=== PATIENT | male | born 1955 | race Caucasian/White ===

== ENCOUNTER 2024-02-29 07:44 | Inpatient (IN) | payer OTHER, MEDICARE ==
[2024-02-29] VITALS (19 sets, daily range): BP systolic 61–196; BP diastolic 42–78; PULSE 50–93; RESP 18–24; TEMP 37.2252–37.28076; O2SAT 87–100
[~2024-02-29] VITALS: Ht 175.3 cm; Wt 92.1 kg
[2024-02-29] MEDS ORDERED: ACETAMINOPHEN 650MG SUPP PR PRN (08:15)
[2024-02-29] MEDS ORDERED: ACETAMINOPHEN 650MG/20.3ML UDC NG PRN (08:15)
[2024-02-29 08:29] LABS: HEMATOCRIT. 43.9 % (42.0-52.0); HEMOGLOBIN. 13.3 g/dL (14.0-18.0); MEAN CORPUSCULAR HGB CONC 30.2 g/dL (31.0-37.0); MEAN CORPUSCULAR VOLUME 106.1 fL (80.0-94.0); MEAN PLATELET VOLUME 8.7 fl (7.4-10.4); PLATELET 90 x1000/uL (130-400); RED BLOOD CELL COUNT 4.14 mill/uL (4.7-6.1); RED CELL DISTRIBUTION WIDTH 15.8 % (11.6-14.6); WHITE BLOOD COUNT 10.2 x1000/uL (4.5-11.0)
[2024-02-29] MEDS ORDERED: FENTANYL 2500MCG/250ML PMX 250 ML IV ONE (08:30)
[2024-02-29] MEDS ORDERED: MIDAZOLAM HCL 100 MG in DEXT 5% WATER 80 ML IV ONE (08:30)
[2024-02-29] MEDS ORDERED: FENTANYL CITRATE/PF 50MCG/ML 2ML VIAL IV ONE (08:30)
[2024-02-29 08:33] LABS: CHLORIDE 101 mEq/L (98-107); DIFFERENTIAL COMMENT 1; SODIUM 137 mEq/L (136-145)
[2024-02-29 08:34] LABS: CARBON DIOXIDE 19 mEq/L (21-32)
[2024-02-29 08:35] LABS: CALCIUM 7.8 mg/dL (8.7-10.4)
[2024-02-29 08:39] LABS: CREATININE 1.5 mg/dL (0.6-1.3)
[2024-02-29 08:40] LABS: UREA NITROGEN BLOOD 14 mg/dL (9-23)
[2024-02-29] MEDS ORDERED: DOPAMINE 800MG PREMIX (DOUBLE) 250 ML IV ONE (08:45)
[2024-02-29 08:46] LABS: GLUCOSE 429 mg/dL (70-105); PHOSPHORUS 8.1 mg/dL (2.5-4.9); TROPONIN I HIGH SENSITIVITY 226 ng/L (3.0-53)
[2024-02-29] MEDS: DOPAMINE 800MG PREMIX (DOUBLE) 250 ML IV ONE (08:58)
[2024-02-29] MEDS: MIDAZOLAM 100MG/100ML PMX 100 ML IV PRN (09:02)
[2024-02-29] MEDS: FENTANYL 2500MCG/250ML PMX 250 ML IV PRN (09:05)
[2024-02-29] MEDS ORDERED: MIDAZOLAM 100MG/100ML PMX 100 ML IV PRN (09:30)
[2024-02-29] MEDS ORDERED: MAGNESIUM/ALUMINUM HYDROXIDE/SIMETHICONE 30ML UDC PO PRN (09:30)
[2024-02-29] MEDS ORDERED: GUAIFENESIN 200MG/10ML SUGAR FREE UDC PO PRN (09:30)
[2024-02-29] MEDS ORDERED: DOCUSATE SODIUM 100MG CAPSULE PO PRN (09:30)
[2024-02-29] MEDS ORDERED: ONDANSETRON HCL 4MG/2ML INJ IV PRN (09:30)
[2024-02-29] MEDS ORDERED: ACETAMINOPHEN 650MG/20.3ML UDC GT PRN (09:30)
[2024-02-29] MEDS: FENTANYL CITRATE/PF 50MCG/ML 2ML VIAL IV NR (09:38)
[2024-02-29] MEDS: PANTOPRAZOLE SODIUM 40 MG/VIAL IV SCH (09:45)
[2024-02-29 10:08] LABS: TRIGLYCERIDE 149 mg/dL (0-150)
[2024-02-29 10:09] LABS: LDL CHOLESTEROL 67 mg/dL (5-100)
[2024-02-29 10:10] LABS: ALANINE AMINOTRANSFERASE 22 IU/L (10-49); ALBUMIN 3.4 g/dL (3.2-4.8); ASPARTATE AMINOTRANSFERASE 39 IU/L (<34); BILIRUBIN DIRECT 0.2 mg/dL (<=3.0); BILIRUBIN TOTAL 0.7 mg/dL (0.1-1.0); CHOLESTEROL 146 mg/dL (<200); HDL CHOLESTEROL 55 mg/dL (>55); PROTEIN TOTAL 5.6 g/dL (6.0-8.3)
[2024-02-29 10:12] LABS: T4 FREE 0.81 ng/dL (0.89-1.76); THYROID STIMULATING HORMONE 3.31 uIU/mL (0.55-4.78)
[2024-02-29 10:13] LABS: BG BASE EXCESS -16.6 mmol/L (-2.0-3.0); BG CARBOXYHEMOGLOBIN 1.1 % (0.5-1.5); BG DEOXYHEMOGLOBIN 10.1 % (0.0-5.0); BG FRACTION INSPIRED OXYGEN 100; BG HCO3 ACT 15.6 mmol/L (21.0-28.0); BG OXYGEN SATURATION 89.8 % (94.0-98.0); BG OXYHEMOGLOBIN 88.8 % (94.0-98.0); BG PCO2 66.5 mmHg (35.0-48.0); BG PH 6.988 (7.350-7.450); BG PO2 83.9 mmHg (83.0-108.0); BG SAMPLE SITE RIGHT RADIAL; BG VENT MODE VENT - AC
[2024-02-29 10:28] LABS: D-DIMER 3.95 mg/L FEU (<0.50); PARTIAL THROMBOPLASTIN TIME 39.2 sec (23.4-31.0); PROTHROMBIN TIME 11.5 sec (9.6-11.0)
[2024-02-29] MEDS: NOREPINEPHRINE 8MG/250ML PMX 250 ML IV ONE (10:53)
[2024-02-29] MEDS: KCL 20MEQ/100ML PREMIX 100 ML IV ONE (10:59)
[2024-02-29] MEDS: IPRATROPIUM/ALBUTEROL 0.5-3(2.5)MG/3ML NEB HHN SCH (11:10)
[2024-02-29] MEDS ORDERED: DEXTROSE 50% WATER 50ML SYRINGE IV PRN (11:30)
[2024-02-29 11:35] LABS: FOLIC ACID (FOLATE) SERUM > 20.00 ng/mL (>5.38)
[2024-02-29 11:36] LABS: VITAMIN B12 SERUM 608 pg/mL (211-911)
[2024-02-29] MEDS ORDERED: DEXT 5%/LACTATED RINGERS 1,000 ML IV SCH (13:00)
[2024-02-29] MEDS: BLOOD SUGAR DIAGNOSTIC STRIP TEST SCH (13:18)
[2024-02-29] MEDS: NOREPINEPHRINE 32 MG in DEXT 5% WATER 218 ML IV PRN (13:18)
[2024-02-29] MEDS: LACTATED RINGERS 1,000 ML IV SCH (13:18)
[2024-02-29] MEDS: INSULIN LISPRO 100 UNITS/ML SUBCUT SCH (14:14)
[2024-02-29 14:57] LABS: ANISOCYTOSIS 1+; PLATELET ESTIMATE DECREASED
[2024-02-29] MEDS: IOHEXOL-350 100 ML BOTTLE ONE (15:52)
[2024-02-29 16:23] LABS: BG BASE EXCESS -6.4 mmol/L (-2.0-3.0); BG CARBOXYHEMOGLOBIN 0.2 % (0.5-1.5); BG DEOXYHEMOGLOBIN 0.4 % (0.0-5.0); BG FRACTION INSPIRED OXYGEN 100; BG HCO3 ACT 19.6 mmol/L (21.0-28.0); BG OXYGEN SATURATION 99.6 % (94.0-98.0); BG OXYHEMOGLOBIN 99.4 % (94.0-98.0); BG PCO2 40.9 mmHg (35.0-48.0); BG PH 7.299 (7.350-7.450); BG PO2 223.7 mmHg (83.0-108.0); BG SAMPLE SITE RIGHT RADIAL; BG TOTAL HEMOGLOBIN 15.4 g/dL (13.5-17.5); BG VENT MODE VENT - AC
[2024-02-29] MEDS ORDERED: CEFEPIME 1GM IN DEXT 5% 50ML IV SCH (16:30)
[2024-02-29 19:00] LABS: CLARITY URINE CLEAR (CLEAR); COLOR URINE YELLOW (YELLOW); GLUCOSE URINE 1+ (NEGATIVE); KETONES URINE NEGATIVE (NEGATIVE); LEUKOCYTE ESTERASE URINE NEGATIVE (NEGATIVE); NITRITE URINE NEGATIVE (NEGATIVE); OCCULT BLOOD URINE 3+ (NEGATIVE); PROTEIN URINE 2+ (NEGATIVE); SPECIFIC GRAVITY URINE 1.026 (1.005-1.030); UROBILINOGEN URINE 0.2 E.U./dL (0.2-1.0)
[2024-02-29 19:08] LABS: *AMPHETAMINES SCREEN URINE NEGATIVE (NEGATIVE); *BARBITURATES SCREEN URINE NEGATIVE (NEGATIVE); *BENZODIAZEPINES SCREEN URINE PRESUMPTIVE POSITIVE (NEGATIVE); *COCAINE SCREEN URINE NEGATIVE (NEGATIVE); METHADONE URINE SCREEN NEGATIVE (NEGATIVE); OPIATES URINE SCREEN NEGATIVE (NEGATIVE)
[2024-02-29 19:09] LABS: CANNABINOID URINE SCREEN NEGATIVE (NEGATIVE); ECSTASY MDMA SCREEN URINE NEGATIVE (NEGATIVE); PHENCYCLIDINE URINE SCREEN NEGATIVE (NEGATIVE)
[2024-02-29] MEDS: CEFEPIME 2GM/100ML 100 ML IV SCH (19:40)
[2024-02-29 19:48] LABS: CREATINE KINASE MB FRACTION > 300.0 ng/mL (0.5-3.6)
[2024-02-29 19:58] LABS: RBC URINE 15-25 /hpf (0-2); SQUAMOUS EPITHELIAL CELL URINE 1+ /lpf (RARE/1+); WBC URINE 0-2 /hpf (0-2)
[2024-02-29 19:59] LABS: BACTERIA URINE TRACE
[2024-02-29 21:22] LABS: CREATINE KINASE 3578 IU/L (46-171)
[2024-02-29 21:44] LABS: TROPONIN I HIGH SENSITIVITY 79846 ng/L (3.0-53)
[2024-02-29] MEDS ORDERED: IOHEXOL-350 100 ML BOTTLE ONE (22:59)
[2024-03-01] VITALS (112 sets, daily range): BP systolic 87–202; BP diastolic 40–121; PULSE 57–118; RESP 17–32; TEMP 36.50292–37.7808; O2SAT 93–100
[2024-03-01] MEDS ORDERED: DEXTROSE 50% WATER 50ML SYRINGE IV PRN (00:15)
[2024-03-01 02:13] LABS: CHLORIDE 108 mEq/L (98-107); POTASSIUM 4.2 mEq/L (3.5-5.1); SODIUM 139 mEq/L (136-145)
[2024-03-01 02:14] LABS: CALCIUM 8.5 mg/dL (8.7-10.4); CARBON DIOXIDE 20 mEq/L (21-32)
[2024-03-01 02:19] LABS: UREA NITROGEN BLOOD 26 mg/dL (9-23)
[2024-03-01 02:20] LABS: AMMONIA < 17 uMol/L (<32)
[2024-03-01 02:21] LABS: ALANINE AMINOTRANSFERASE 117 IU/L (10-49); ALBUMIN 3.4 g/dL (3.2-4.8); ASPARTATE AMINOTRANSFERASE 450 IU/L (<34); BILIRUBIN DIRECT 0.6 mg/dL (<=3.0); PHOSPHORUS 3.6 mg/dL (2.5-4.9)
[2024-03-01 02:22] LABS: BILIRUBIN TOTAL 1.6 mg/dL (0.1-1.0); PROTEIN TOTAL 5.7 g/dL (6.0-8.3)
[2024-03-01 02:47] LABS: CREATININE 2.4 mg/dL (0.6-1.3); GLUCOSE 174 mg/dL (70-105)
[2024-03-01] MEDS: ACETYLCYSTEINE 200MG/ML 20% VIAL 4ML INH SCH (04:37)
[2024-03-01 05:12] LABS: BG BASE EXCESS -2.9 mmol/L (-2.0-3.0); BG DEOXYHEMOGLOBIN 5.3 % (0.0-5.0); BG FRACTION INSPIRED OXYGEN 30; BG HCO3 ACT 21.9 mmol/L (21.0-28.0); BG OXYGEN SATURATION 94.6 % (94.0-98.0); BG OXYHEMOGLOBIN 93.7 % (94.0-98.0); BG PCO2 38.6 mmHg (35.0-48.0); BG PH 7.372 (7.350-7.450); BG PO2 74.3 mmHg (83.0-108.0); BG SAMPLE SITE RIGHT RADIAL; BG VENT MODE VENT - AC
[2024-03-01 06:54] LABS: HEMATOCRIT. 42.7 % (42.0-52.0); MEAN CORPUSCULAR HEMOGLOBIN 31.9 pg (28.0-32.0); MEAN CORPUSCULAR HGB CONC 32.7 g/dL (31.0-37.0); MEAN CORPUSCULAR VOLUME 97.4 fL (80.0-94.0); MEAN PLATELET VOLUME 8.5 fl (7.4-10.4); PLATELET 185 x1000/uL (130-400); RED BLOOD CELL COUNT 4.38 mill/uL (4.7-6.1); WHITE BLOOD COUNT 17.7 x1000/uL (4.5-11.0)
[2024-03-01] MEDS: MAGNESIUM 2 G PREMIX 50 ML IV NR (06:58)
[2024-03-01] MEDS ORDERED: DOPAMINE 800MG PREMIX (DOUBLE) 250 ML IV PRN (07:00)
[2024-03-01] MEDS: DOPAMINE 800MG PREMIX (DOUBLE) 250 ML IV PRN (07:02)
[2024-03-01 07:17] LABS: CARBON DIOXIDE 21 mEq/L (21-32); CHLORIDE 107 mEq/L (98-107); SODIUM 139 mEq/L (136-145)
[2024-03-01 07:18] LABS: CALCIUM 8.7 mg/dL (8.7-10.4)
[2024-03-01 07:23] LABS: CREATININE 2.4 mg/dL (0.6-1.3); GLUCOSE 150 mg/dL (70-105); UREA NITROGEN BLOOD 20 mg/dL (9-23)
[2024-03-01 07:25] LABS: PHOSPHORUS 3.4 mg/dL (2.5-4.9)
[2024-03-01] MEDS: BLOOD SUGAR DIAGNOSTIC STRIP TEST SCH (07:50)
[2024-03-01 08:41] LABS: BG BASE EXCESS -2.8 mmol/L (-2.0-3.0); BG CARBOXYHEMOGLOBIN 1.1 % (0.5-1.5); BG FRACTION INSPIRED OXYGEN 30; BG HCO3 ACT 21.9 mmol/L (21.0-28.0); BG METHEMOGLOBIN 0.3 % (0.5-1.5); BG OXYGEN SATURATION 91.9 % (94.0-98.0); BG OXYHEMOGLOBIN 90.6 % (94.0-98.0); BG PCO2 37.7 mmHg (35.0-48.0); BG PH 7.381 (7.350-7.450); BG PO2 61.8 mmHg (83.0-108.0); BG SAMPLE SITE RIGHT RADIAL; BG TOTAL HEMOGLOBIN 14.1 g/dL (13.5-17.5); BG VENT MODE VENT - AC
[2024-03-01 08:47] LABS: CREATINE KINASE 5647 IU/L (46-171)
[2024-03-01 08:53] LABS: CREATINE KINASE MB FRACTION 331.1 ng/mL (0.5-3.6); TROPONIN I HIGH SENSITIVITY 41703 ng/L (3.0-53)
[2024-03-01 09:15] LABS: DIFFERENTIAL COMMENT 1
[2024-03-01] MEDS ORDERED: LIDOCAINE HCL 1% 10 MG/ML 10ML VIAL ONE (13:21)
[2024-03-01] MEDS: ENOXAPARIN 80MG/0.8ML SYR SUBCUT SCH (14:54)
[2024-03-01] MEDS: DEXT 5%/LACTATED RINGERS 1,000 ML IV SCH (14:54)
[2024-03-01] MEDS: INSULIN LISPRO 100 UNITS/ML SUBCUT SCH (20:59)
[2024-03-02] VITALS (102 sets, daily range): BP systolic 113–187; BP diastolic 48–124; PULSE 71–106; RESP 13–29; TEMP 36.72516–37.66968; O2SAT 81–100
[2024-03-02 07:17] LABS: BASOPHILS % 0.1 % (0.0-2.0); HEMOGLOBIN. 10.7 g/dL (14.0-18.0); LYMPHOCYTES % 9.8 % (20.0-50.0); MEAN CORPUSCULAR HEMOGLOBIN 31.8 pg (28.0-32.0); MEAN CORPUSCULAR HGB CONC 33.3 g/dL (31.0-37.0); MEAN CORPUSCULAR VOLUME 95.5 fL (80.0-94.0); MEAN PLATELET VOLUME 9.2 fl (7.4-10.4); MONOCYTES % 8.2 % (2.0-8.0); NEUTROPHILS % 81.9 % (40.0-76.0); PLATELET 149 x1000/uL (130-400); RED BLOOD CELL COUNT 3.35 mill/uL (4.7-6.1); RED CELL DISTRIBUTION WIDTH 14.7 % (11.6-14.6); WHITE BLOOD COUNT 13.1 x1000/uL (4.5-11.0)
[2024-03-02] MEDS: MIDAZOLAM 100MG/100ML PMX 100 ML IV PRN (07:23)
[2024-03-02 07:24] LABS: CHLORIDE 111 mEq/L (98-107); POTASSIUM 4.4 mEq/L (3.5-5.1); SODIUM 142 mEq/L (136-145)
[2024-03-02 07:25] LABS: CALCIUM 8.2 mg/dL (8.7-10.4); CARBON DIOXIDE 24 mEq/L (21-32)
[2024-03-02] MEDS: CEFEPIME 2GM/100ML 100 ML IV SCH ×2 (07:25→17:39)
[2024-03-02 07:30] LABS: CREATININE 2.4 mg/dL (0.6-1.3); GLUCOSE 154 mg/dL (70-105); UREA NITROGEN BLOOD 31 mg/dL (9-23)
[2024-03-02 07:43] LABS: CREATINE KINASE 4158 IU/L (46-171)
[2024-03-02] MEDS: CLOPIDOGREL 75MG TABLET PO SCH (08:27)
[2024-03-02] MEDS: CARVEDILOL 3.125 MG TABLET PO SCH (08:28)
[2024-03-02 09:12] LABS: BG BASE EXCESS -0.6 mmol/L (-2.0-3.0); BG CARBOXYHEMOGLOBIN 0.2 % (0.5-1.5); BG FRACTION INSPIRED OXYGEN 35; BG HCO3 ACT 22.5 mmol/L (21.0-28.0); BG METHEMOGLOBIN 0.3 % (0.5-1.5); BG OXYHEMOGLOBIN 97.5 % (94.0-98.0); BG PCO2 31.8 mmHg (35.0-48.0); BG PH 7.467 (7.350-7.450); BG PO2 105.9 mmHg (83.0-108.0); BG SAMPLE SITE UAL; BG TOTAL HEMOGLOBIN 11.4 g/dL (13.5-17.5); BG TOTAL RESPIRATORY RATE 20 b/min; BG VENT MODE VENT - AC
[2024-03-02] MEDS: FENTANYL 2500MCG/250ML PMX 250 ML IV PRN (09:48)
[2024-03-02] MEDS: LACTATED RINGERS 1,000 ML IV SCH (13:31)
[2024-03-02] MEDS: METRONIDAZOLE 500 MG PREMIX 100 ML IV SCH (13:38)
[2024-03-02 15:51] LABS: ANISOCYTOSIS 1+; PLATELET ESTIMATE NORMAL
[2024-03-02] MEDS: CLONIDINE 0.1MG TABLET PO PRN (16:08)
[2024-03-02] MEDS: FENTANYL CITRATE/PF 2,500 MCG in SODIUM CHLORIDE 0.9% 200 ML IV PRN (18:29)
[2024-03-02 18:45] LABS: CREATINE KINASE 3526 IU/L (46-171)
[2024-03-02] MEDS: ACETAMINOPHEN 650MG/20.3ML UDC GT PRN (20:20)
[2024-03-03] VITALS (109 sets, daily range): BP systolic 103–193; BP diastolic 46–98; PULSE 69–138; RESP 13–39; TEMP 36.50292–38.11416; O2SAT 94–100
[2024-03-03 06:25] LABS: BASOPHILS % 0.3 % (0.0-2.0); EOSINOPHILS % 1.9 % (0.0-5.0); HEMATOCRIT. 30.4 % (42.0-52.0); HEMOGLOBIN. 10.1 g/dL (14.0-18.0); LYMPHOCYTES % 13.2 % (20.0-50.0); MEAN CORPUSCULAR HEMOGLOBIN 31.8 pg (28.0-32.0); MEAN CORPUSCULAR HGB CONC 33.3 g/dL (31.0-37.0); MEAN CORPUSCULAR VOLUME 95.7 fL (80.0-94.0); MONOCYTES % 8.7 % (2.0-8.0); NEUTROPHILS % 75.9 % (40.0-76.0); PLATELET 134 x1000/uL (130-400); RED BLOOD CELL COUNT 3.17 mill/uL (4.7-6.1); RED CELL DISTRIBUTION WIDTH 14.9 % (11.6-14.6)
[2024-03-03 06:48] LABS: CREATININE 2.1 mg/dL (0.6-1.3)
[2024-03-03 08:32] LABS: CREATINE KINASE 2419 IU/L (46-171)
[2024-03-03] MEDS ORDERED: METOPROLOL TARTRATE 5MG/5ML VIAL IV NR (19:00)
[2024-03-03] MEDS: AMIODARONE HCL 900 MG in DEXT 5% WATER 482 ML IV SCH (19:32)
[2024-03-04] VITALS (106 sets, daily range): BP systolic 94–193; BP diastolic 46–109; PULSE 67–130; RESP 13–26; TEMP 36.78072–37.7808; O2SAT 92–100
[2024-03-04 06:57] LABS: POTASSIUM 4.2 mEq/L (3.5-5.1)
[2024-03-04 06:58] LABS: CALCIUM 8.2 mg/dL (8.7-10.4)
[2024-03-04 07:03] LABS: CREATININE 2.1 mg/dL (0.6-1.3)
[2024-03-04 07:24] LABS: BASOPHILS % 0.5 % (0.0-2.0); EOSINOPHILS % 5.4 % (0.0-5.0); HEMOGLOBIN. 10.3 g/dL (14.0-18.0); MEAN CORPUSCULAR HEMOGLOBIN 31.7 pg (28.0-32.0); MEAN CORPUSCULAR HGB CONC 32.3 g/dL (31.0-37.0); MEAN PLATELET VOLUME 9.7 fl (7.4-10.4); NEUTROPHILS % 60.1 % (40.0-76.0); PLATELET 163 x1000/uL (130-400); RED BLOOD CELL COUNT 3.26 mill/uL (4.7-6.1); RED CELL DISTRIBUTION WIDTH 15.5 % (11.6-14.6); WHITE BLOOD COUNT 11.4 x1000/uL (4.5-11.0)
[2024-03-04] MEDS: ASPIRIN 81MG EC TABLET PO SCH (12:26)
[2024-03-04] MEDS ORDERED: ASPIRIN 81MG TABLET PO SCH (12:30)
[2024-03-04] MEDS: ATORVASTATIN CALCIUM 40MG TABLET PO SCH (20:14)
[2024-03-05] VITALS (103 sets, daily range): BP systolic 123–179; BP diastolic 54–128; PULSE 71–106; RESP 0–27; TEMP 36.55848–37.39188; O2SAT 93–100
[2024-03-05] MEDS: METOCLOPRAMIDE HCL 10MG/2ML VIAL IV SCH (00:07)
[2024-03-05 05:34] LABS: BASOPHILS % 0.5 % (0.0-2.0); EOSINOPHILS % 5.8 % (0.0-5.0); HEMATOCRIT. 29.5 % (42.0-52.0); HEMOGLOBIN. 9.8 g/dL (14.0-18.0); LYMPHOCYTES % 16.1 % (20.0-50.0); MEAN CORPUSCULAR HEMOGLOBIN 32.4 pg (28.0-32.0); MEAN CORPUSCULAR HGB CONC 33.1 g/dL (31.0-37.0); MEAN CORPUSCULAR VOLUME 97.8 fL (80.0-94.0); MEAN PLATELET VOLUME 9.1 fl (7.4-10.4); MONOCYTES % 11.7 % (2.0-8.0); NEUTROPHILS % 65.9 % (40.0-76.0); PLATELET 176 x1000/uL (130-400); RED BLOOD CELL COUNT 3.01 mill/uL (4.7-6.1); RED CELL DISTRIBUTION WIDTH 15.4 % (11.6-14.6); WHITE BLOOD COUNT 8.3 x1000/uL (4.5-11.0)
[2024-03-05 05:49] LABS: CALCIUM 8.3 mg/dL (8.7-10.4); POTASSIUM 3.9 mEq/L (3.5-5.1)
[2024-03-05 05:54] LABS: CREATININE 1.9 mg/dL (0.6-1.3)
[2024-03-05] MEDS: ASPIRIN 81MG TABLET GT SCH (08:59)
[2024-03-05 09:52] LABS: BG BASE EXCESS -2.8 mmol/L (-2.0-3.0); BG CARBOXYHEMOGLOBIN 0.9 % (0.5-1.5); BG DEOXYHEMOGLOBIN 1.9 % (0.0-5.0); BG FRACTION INSPIRED OXYGEN 35; BG HCO3 ACT 21.8 mmol/L (21.0-28.0); BG METHEMOGLOBIN 0.1 % (0.5-1.5); BG OXYGEN SATURATION 98.1 % (94.0-98.0); BG OXYHEMOGLOBIN 97.1 % (94.0-98.0); BG PCO2 37.2 mmHg (35.0-48.0); BG PH 7.385 (7.350-7.450); BG PO2 114.8 mmHg (83.0-108.0); BG SAMPLE SITE RIGHT RADIAL; BG TOTAL HEMOGLOBIN 11.9 g/dL (13.5-17.5); BG VENT MODE VENT - AC
[2024-03-05 11:52] LABS: CREATINE KINASE 822 IU/L (46-171)
[2024-03-05] MEDS: FUROSEMIDE 40MG/4ML VIAL IVP SCH (12:15)
[2024-03-05] MEDS: IPRATROPIUM/ALBUTEROL 0.5-3(2.5)MG/3ML NEB HHN PRN (15:59)
[2024-03-06] VITALS (106 sets, daily range): BP systolic 107–203; BP diastolic 49–143; PULSE 55–125; RESP 0–28; TEMP 36.50292–37.2252; O2SAT 87–100
[2024-03-06 06:34] LABS: BASOPHILS % 0.4 % (0.0-2.0); EOSINOPHILS % 5.5 % (0.0-5.0); HEMATOCRIT. 30.4 % (42.0-52.0); HEMOGLOBIN. 9.7 g/dL (14.0-18.0); LYMPHOCYTES % 11.8 % (20.0-50.0); MEAN CORPUSCULAR HEMOGLOBIN 31.4 pg (28.0-32.0); MONOCYTES % 11.6 % (2.0-8.0); NEUTROPHILS % 70.7 % (40.0-76.0); PLATELET 193 x1000/uL (130-400); RED BLOOD CELL COUNT 3.11 mill/uL (4.7-6.1); RED CELL DISTRIBUTION WIDTH 15.3 % (11.6-14.6); WHITE BLOOD COUNT 8.7 x1000/uL (4.5-11.0)
[2024-03-06 06:35] LABS: CARBON DIOXIDE 23 mEq/L (21-32); CHLORIDE 113 mEq/L (98-107); POTASSIUM 3.7 mEq/L (3.5-5.1); SODIUM 142 mEq/L (136-145)
[2024-03-06 06:36] LABS: CALCIUM 8.3 mg/dL (8.7-10.4)
[2024-03-06 06:40] LABS: CREATININE 1.9 mg/dL (0.6-1.3); GLUCOSE 146 mg/dL (70-105)
[2024-03-06 06:41] LABS: UREA NITROGEN BLOOD 34 mg/dL (9-23)
[2024-03-06 06:43] LABS: PHOSPHORUS 3.3 mg/dL (2.5-4.9)
[2024-03-06 09:22] LABS: BG BASE EXCESS -4.3 mmol/L (-2.0-3.0); BG CARBOXYHEMOGLOBIN 0.7 % (0.5-1.5); BG DEOXYHEMOGLOBIN 5.1 % (0.0-5.0); BG FRACTION INSPIRED OXYGEN 35; BG HCO3 ACT 20.7 mmol/L (21.0-28.0); BG METHEMOGLOBIN 0.3 % (0.5-1.5); BG OXYGEN SATURATION 94.8 % (94.0-98.0); BG OXYHEMOGLOBIN 93.9 % (94.0-98.0); BG PCO2 37.7 mmHg (35.0-48.0); BG PH 7.358 (7.350-7.450); BG PO2 78.2 mmHg (83.0-108.0); BG SAMPLE SITE RIGHT RADIAL; BG TOTAL HEMOGLOBIN 10.8 g/dL (13.5-17.5); BG VENT MODE VENT - AC
[2024-03-06 10:48] LABS: CREATINE KINASE 460 IU/L (46-171)
[2024-03-06] MEDS: ENOXAPARIN 100MG/ML SYR SUBCUT SCH (14:06)
[2024-03-06] MEDS: DEXMEDETOMIDINE 400 MCG/100 ML 100 ML IV PRN (14:09)
[2024-03-06] MEDS: NITROGLYCERIN OINT 1GM/INCH UDPKT TD SCH (22:15)
[2024-03-07] VITALS (84 sets, daily range): BP systolic 114–185; BP diastolic 55–146; PULSE 67–147; RESP 0–29; TEMP 36.61404–37.28076; O2SAT 99–100
[2024-03-07] MEDS: HYDRALAZINE 20MG/ML VIAL IV PRN (02:43)
[2024-03-07] MEDS: AMIODARONE 150MG/100ML D5W 100 ML IV NR (03:01)
[2024-03-07 06:15] LABS: BASOPHILS % 0.4 % (0.0-2.0); DIFFERENTIAL COMMENT 0; EOSINOPHILS % 4.6 % (0.0-5.0); HEMATOCRIT. 27.5 % (42.0-52.0); MEAN CORPUSCULAR HEMOGLOBIN 32.3 pg (28.0-32.0); MEAN CORPUSCULAR HGB CONC 32.8 g/dL (31.0-37.0); MEAN CORPUSCULAR VOLUME 98.5 fL (80.0-94.0); MEAN PLATELET VOLUME 8.8 fl (7.4-10.4); MONOCYTES % 11.1 % (2.0-8.0); NEUTROPHILS % 74.9 % (40.0-76.0); PLATELET 226 x1000/uL (130-400); RED BLOOD CELL COUNT 2.79 mill/uL (4.7-6.1); RED CELL DISTRIBUTION WIDTH 15.5 % (11.6-14.6); WHITE BLOOD COUNT 9.7 x1000/uL (4.5-11.0)
[2024-03-07 06:27] LABS: POTASSIUM 3.9 mEq/L (3.5-5.1)
[2024-03-07 06:28] LABS: CALCIUM 7.5 mg/dL (8.7-10.4)
[2024-03-07 06:33] LABS: CREATININE 1.5 mg/dL (0.6-1.3)
[2024-03-07 09:22] LABS: BG BASE EXCESS -1.6 mmol/L (-2.0-3.0); BG CARBOXYHEMOGLOBIN 0.3 % (0.5-1.5); BG FRACTION INSPIRED OXYGEN 35; BG HCO3 ACT 23.9 mmol/L (21.0-28.0); BG METHEMOGLOBIN 0.3 % (0.5-1.5); BG OXYHEMOGLOBIN 95.4 % (94.0-98.0); BG PCO2 43.5 mmHg (35.0-48.0); BG PH 7.357 (7.350-7.450); BG PO2 83.1 mmHg (83.0-108.0); BG SAMPLE SITE LEFT RADIAL; BG TOTAL HEMOGLOBIN 10.5 g/dL (13.5-17.5); BG VENT MODE VENT - AC
[2024-03-07] MEDS: MIDAZOLAM 100MG/100ML PMX 100 ML IV PRN (13:20)
[2024-03-07] MEDS: FENTANYL 2500MCG/250ML PMX 250 ML IV PRN (17:09)
[2024-03-08] VITALS (108 sets, daily range): BP systolic 50–211; BP diastolic 31–90; PULSE 67–101; RESP 6–44; TEMP 36.44736–36.72516; O2SAT 92–100
[2024-03-08 06:14] LABS: CALCIUM 8.7 mg/dL (8.7-10.4); CARBON DIOXIDE 24 mEq/L (21-32); CHLORIDE 112 mEq/L (98-107); POTASSIUM 4.3 mEq/L (3.5-5.1); SODIUM 144 mEq/L (136-145)
[2024-03-08 06:19] LABS: CREATININE 1.7 mg/dL (0.6-1.3); GLUCOSE 156 mg/dL (70-105)
[2024-03-08 06:20] LABS: UREA NITROGEN BLOOD 39 mg/dL (9-23)
[2024-03-08 06:22] LABS: PHOSPHORUS 3.6 mg/dL (2.5-4.9)
[2024-03-08 06:35] LABS: BASOPHILS % 0.4 % (0.0-2.0); HEMATOCRIT. 28.9 % (42.0-52.0); HEMOGLOBIN. 9.4 g/dL (14.0-18.0); LYMPHOCYTES % 14.4 % (20.0-50.0); MEAN CORPUSCULAR HEMOGLOBIN 31.6 pg (28.0-32.0); MEAN CORPUSCULAR HGB CONC 32.5 g/dL (31.0-37.0); MEAN CORPUSCULAR VOLUME 97.3 fL (80.0-94.0); NEUTROPHILS % 68.2 % (40.0-76.0); PLATELET 258 x1000/uL (130-400); RED BLOOD CELL COUNT 2.97 mill/uL (4.7-6.1); RED CELL DISTRIBUTION WIDTH 15.4 % (11.6-14.6); WHITE BLOOD COUNT 9.8 x1000/uL (4.5-11.0)
[2024-03-08 09:07] LABS: BG BASE EXCESS -0.6 mmol/L (-2.0-3.0); BG CARBOXYHEMOGLOBIN 0.1 % (0.5-1.5); BG DEOXYHEMOGLOBIN 2.4 % (0.0-5.0); BG FRACTION INSPIRED OXYGEN 35; BG HCO3 ACT 24.4 mmol/L (21.0-28.0); BG METHEMOGLOBIN 0.3 % (0.5-1.5); BG OXYGEN SATURATION 97.6 % (94.0-98.0); BG OXYHEMOGLOBIN 97.2 % (94.0-98.0); BG PCO2 41.4 mmHg (35.0-48.0); BG PH 7.388 (7.350-7.450); BG PO2 99.6 mmHg (83.0-108.0); BG SAMPLE SITE LEFT RADIAL; BG TOTAL HEMOGLOBIN 11.2 g/dL (13.5-17.5); BG VENT MODE VENT - AC
[2024-03-08] MEDS: FENTANYL 2500MCG/250ML PMX 250 ML IV PRN (14:30)
[2024-03-08] MEDS ORDERED: ALBUMIN HUMAN 25GM/100ML (25%) IV ONE (21:00)
[2024-03-08] MEDS ORDERED: ALBUMIN HUMAN 25GM/500ML (5%) IV ONE (21:15)
[2024-03-08] MEDS: ALBUMIN HUMAN 12.5G/250ML (5%) IV NR (21:28)
[2024-03-08] MEDS: NOREPINEPHRINE 32 MG in DEXT 5% WATER 218 ML IV PRN (21:37)
[2024-03-08] MEDS: LACTATED RINGERS 1,000 ML IV ONE (23:30)
[2024-03-08] MEDS: BISACODYL 10MG SUPP PR NR (23:30)
[2024-03-09] VITALS (95 sets, daily range): BP systolic 50–194; BP diastolic 21–121; PULSE 71–97; RESP 14–28; TEMP 34.4472–36.83628; O2SAT 56–100
[2024-03-09 00:27] LABS: MEAN CORPUSCULAR HEMOGLOBIN 31.3 pg (28.0-32.0); MEAN CORPUSCULAR HGB CONC 30.9 g/dL (31.0-37.0); MEAN CORPUSCULAR VOLUME 101.5 fL (80.0-94.0); PLATELET 187 x1000/uL (130-400); RED BLOOD CELL COUNT 1.62 mill/uL (4.7-6.1); RED CELL DISTRIBUTION WIDTH 15.7 % (11.6-14.6); WHITE BLOOD COUNT 16.6 x1000/uL (4.5-11.0)
[2024-03-09 00:30] LABS: HEMATOCRIT 16.5 % (42.0-52.0); HEMOGLOBIN 5.1 g/dL (14.0-18.0)
[2024-03-09 01:22] LABS: HEMOGLOBIN 5.3 g/dL (14.0-18.0)
[2024-03-09 01:22] LABS: LACTIC ACID 8.6 mmol/L (0.4-2.0)
[2024-03-09 01:23] LABS: HEMATOCRIT 16.8 % (42.0-52.0)
[2024-03-09] MEDS: PHENYLEPHRINE 100 MG in DEXT 5% WATER 240 ML IV PRN (04:27)
[2024-03-09] MEDS: ATROPINE SULFATE 1MG/10ML SYR IV NR (04:38)
[2024-03-09] MEDS: SODIUM BICARBONATE 8.4% 50MEQ/50ML SYR IV NR ×2 (04:38→06:14)
[2024-03-09] MEDS: EPINEPHRINE 10 MG in SODIUM CHLORIDE 0.9% 240 ML IV PRN (04:50)
[2024-03-09] MEDS ORDERED: AMIODARONE 360MG/200ML 200 ML IV SCH (05:30)
[2024-03-09 05:52] LABS: BG FRACTION INSPIRED OXYGEN 100; BG PCO2 22.5 mmHg (35.0-48.0); BG PH 6.966 (7.350-7.450); BG PO2 96.2 mmHg (83.0-108.0); BG TOTAL HEMOGLOBIN < 4.5 g/dL (13.5-17.5); BG VENT MODE VENT - AC
[2024-03-09] MEDS ORDERED: AMIODARONE HCL 900 MG in DEXT 5% WATER 500 ML IV SCH (06:00)
[2024-03-09] MEDS: VASOPRESSIN 20 UNIT in SODIUM CHLORIDE 0.9% 99 ML IV PRN (06:27)
[2024-03-09 10:33] LABS: HEMATOCRIT. 30.5 % (42.0-52.0); HEMOGLOBIN. 9.6 g/dL (14.0-18.0); MEAN CORPUSCULAR HGB CONC 31.5 g/dL (31.0-37.0); MEAN CORPUSCULAR VOLUME 98.6 fL (80.0-94.0); MEAN PLATELET VOLUME 10.1 fl (7.4-10.4); PLATELET 161 x1000/uL (130-400); RED CELL DISTRIBUTION WIDTH 16.4 % (11.6-14.6); WHITE BLOOD COUNT 25.5 x1000/uL (4.5-11.0)
[2024-03-09 10:40] LABS: INR 1.9; PROTHROMBIN TIME 19.8 sec (9.6-11.0)
[2024-03-09 10:55] LABS: DIFFERENTIAL COMMENT 1
[2024-03-09 11:00] LABS: CHLORIDE 112 mEq/L (98-107); POTASSIUM 5.5 mEq/L (3.5-5.1); SODIUM 152 mEq/L (136-145)
[2024-03-09 11:01] LABS: CALCIUM 9.8 mg/dL (8.7-10.4); CARBON DIOXIDE 15 mEq/L (21-32)
[2024-03-09 11:06] LABS: GLUCOSE 129 mg/dL (70-105); UREA NITROGEN BLOOD 49 mg/dL (9-23)
[2024-03-09 11:08] LABS: ALBUMIN 2.2 g/dL (3.2-4.8); BILIRUBIN TOTAL 1.6 mg/dL (0.1-1.0)
[2024-03-09 11:17] LABS: CREATININE 3.2 mg/dL (0.6-1.3)
[2024-03-09 11:18] LABS: PROTEIN TOTAL 3.6 g/dL (6.0-8.3)
[2024-03-09 11:19] LABS: ALANINE AMINOTRANSFERASE 1683 IU/L (10-49); ASPARTATE AMINOTRANSFERASE 4197 IU/L (<34)
[2024-03-09 11:20] LABS: TROPONIN I HIGH SENSITIVITY 4477 ng/L (3.0-53)
[2024-03-09] MEDS ORDERED: SODIUM POLYSTYRENE SULFONATE 15 G/60 ML BOT NG ONE (12:00)
[2024-03-09] MEDS: SODIUM ZIRCONIUM CYCLOSILICATE 10GM/PACKET PO NR (13:29)
[2024-03-09 13:51] LABS: NUCLEATED RED BLOOD CELLS 8 /100 WBC
[2024-03-09 13:52] LABS: ANISOCYTOSIS 1+; PLATELET ESTIMATE NORMAL
[2024-03-09] MEDS: SODIUM BICARBONATE 150 MEQ in DEXTROSE 5% WATER 850 ML IV SCH (14:36)
[2024-03-09] MEDS ORDERED: LORAZEPAM 2MG/ML INJ IV PRN (17:15)
[2024-03-09] MEDS ORDERED: ONDANSETRON HCL 4MG/2ML INJ IV PRN (17:30)
[2024-03-09 17:37] LABS: LACTIC ACID 13.3 mmol/L (0.4-2.0)
[2024-03-09] MEDS: MORPHINE SULFATE 2 MG/ML INJ (NOT FOR IM USE) IV NR (17:49)
[2024-03-09] MEDS: MORPHINE SULFATE 250 MG in DEXT 5% WATER 225 ML IV PRN (18:19)
== END 2024-03-09 22:30 | DRG 870 ==
LOC: ER 07:44 → EDBEDREQTM 08:57 → EDBEDREQ 08:57 → CVICU 22:27
PROVIDERS: ADMIT Internal Medicine; ATTEND Internal Medicine
PROC: 5A1955Z Respiratory Ventilation, Greater than 96 Consecutive Hours (ICD-10-PCS; principal; 2024-02-29)
PROC: 0BH17EZ Insertion of Endotracheal Airway into Trachea, Via Natural or Artificial Opening (ICD-10-PCS; 2024-02-29)
PROC: 5A12012 Performance of Cardiac Output, Single, Manual (ICD-10-PCS; 2024-02-29)
PROC: 06HY33Z Insertion of Infusion Device into Lower Vein, Percutaneous Approach (ICD-10-PCS; 2024-02-29)
PROC: B54BZZA Ultrasonography of Right Lower Extremity Veins, Guidance (ICD-10-PCS; 2024-02-29)
PROC: 02HV33Z Insertion of Infusion Device into Superior Vena Cava, Percutaneous Approach (ICD-10-PCS; 2024-03-01)
PROC: B548ZZA Ultrasonography of Superior Vena Cava, Guidance (ICD-10-PCS; 2024-03-01)
PROC: 4A00X4Z Measurement of Central Nervous Electrical Activity, External Approach (ICD-10-PCS; 2024-03-05)
PROC: 5A2204Z Restoration of Cardiac Rhythm, Single (ICD-10-PCS; 2024-03-09)
PROC: 30233N1 Transfusion of Nonautologous Red Blood Cells into Peripheral Vein, Percutaneous Approach (ICD-10-PCS; 2024-03-09)
PROC: 04HK33Z Insertion of Infusion Device into Right Femoral Artery, Percutaneous Approach (ICD-10-PCS; 2024-03-09)
DX: A41.9 Sepsis, unspecified organism (principal); J96.02 Acute respiratory failure with hypercapnia; G93.41 Metabolic encephalopathy; N17.0 Acute kidney failure with tubular necrosis; I21.3 ST elevation (STEMI) myocardial infarction of unspecified site; J18.9 Pneumonia, unspecified organism; I63.81 Other cerebral infarction due to occlusion or stenosis of small artery; R40.20 Unspecified coma; J96.01 Acute respiratory failure with hypoxia; S22.43XA Multiple fractures of ribs, bilateral, initial encounter for closed fracture; E87.4 Mixed disorder of acid-base balance; I82.621 Acute embolism and thrombosis of deep veins of right upper extremity; I82.A11 Acute embolism and thrombosis of right axillary vein; M62.82 Rhabdomyolysis; G93.1 Anoxic brain damage, not elsewhere classified; I48.92 Unspecified atrial flutter; T79.7XXA Traumatic subcutaneous emphysema, initial encounter; I47.20 Ventricular tachycardia, unspecified; J93.83 Other pneumothorax; I46.9 Cardiac arrest, cause unspecified; D53.9 Nutritional anemia, unspecified; D69.6 Thrombocytopenia, unspecified; E03.9 Hypothyroidism, unspecified; E83.39 Other disorders of phosphorus metabolism; E83.51 Hypocalcemia; E87.6 Hypokalemia; I48.91 Unspecified atrial fibrillation; I45.10 Unspecified right bundle-branch block; R68.0 Hypothermia, not associated with low environmental temperature; W18.39XA Other fall on same level, initial encounter; J32.9 Chronic sinusitis, unspecified; R14.0 Abdominal distension (gaseous); Z66 Do not resuscitate; I49.01 Ventricular fibrillation; R73.9 Hyperglycemia, unspecified; X58.XXXA Exposure to other specified factors, initial encounter; I13.10 Hypertensive heart and chronic kidney disease without heart failure, with stage 1 through stage 4 chronic kidney disease, or unspecified chronic kidney disease; Z82.49 Family history of ischemic heart disease and other diseases of the circulatory system; Z82.3 Family history of stroke; Z79.899 Other long term (current) drug therapy; Y93.89 Activity, other specified; Y92.89 Other specified places as the place of occurrence of the external cause; Y99.8 Other external cause status; Z79.01 Long term (current) use of anticoagulants
CPT/HCPCS: 31500; 36415; 36573; 36600; 70551; 71045; 71275; 76770; 80048; 80053; 80061; 80076; 80305; 81003; 82140; 82375; 82550; 82553; 82607; 82746; 82805; 82962; 83036; 83605; 83735; 83880; 84100; 84145; 84439; 84443; 84484; 85014; 85018; 85025; 85027; 85379; 86850; 86900; 86920; 87070; 92950; 93005; 93306; 93970; 93971; 94002; 94003; 94640; 99291; 99292; C1725; J0282; J0360; J0692; J1265; J1650; J1815; J1940; J2250; J2270; J2470; J2765; J3010; J3475; J3480; J3490; J7050; J7060; J7070; J7120; J7121; J7608; P9016; P9041; Q9967